=== PATIENT | female | born 1990 | race Caucasian/White ===

== ENCOUNTER 2018-02-09 11:21 | Emergency (ER) | payer OTHER ==
[~2018-02-09] VITALS: Ht 160 cm; Wt 112.5 kg
[2018-02-09 11:28] VITALS: Ht 160 cm; Wt 112.5 kg
[2018-02-09 12:04] LABS: BASOPHIL % 0.3 % (0-2); PLATELET COUNT 210 x10^3mcL (130-400); RED CELL DISTRIBUTION WIDTH 13.2 % (11.5-14.5)
[2018-02-09 12:05] LABS: CALCIUM 8.3 mg/dL (8.5-10.1); CARBON DIOXIDE 25.2 mmol/L (21-32); CHLORIDE SERUM 103 mmol/L (98-107); CREATININE SERUM 0.7 mg/dL (0.6-1.0); GFR1 > 60 mL/min; GLUCOSE SERUM 109 mg/dL (74-106); POTASSIUM SERUM 3.7 mmol/L (3.5-5.1); SODIUM SERUM 138 mmol/L (136-145)
[2018-02-09 12:39] LABS: ALBUMIN 3.7 g/dL (3.4-5.0); ALKALINE PHOSPHATASE 118 U/L (46-116); AST/SGOT 16 U/L (15-37); BILIRUBIN TOTAL 0.5 mg/dL (0.20-1.00); LIPASE 75 IU/L (73-393); TOTAL PROTEIN, SERUM 7.7 g/dL (6.4-8.2)
[2018-02-09 12:51] LABS: ALT/SGPT 30 U/L (14-59)
[2018-02-09 14:45] VITALS: BP 114/66
== END 2018-02-09 14:45 | disposition home or self-care (01) ==
LOC: ED 11:21
PROVIDERS: Emergency Medicine
DX: R10.13 Epigastric pain (principal); R11.2 Nausea with vomiting, unspecified; R19.7 Diarrhea, unspecified
CPT/HCPCS: J2405; J2550; J3010; J7030

== ENCOUNTER 2020-08-02 12:38 | Emergency (ER) | payer BC, OTHER ==
[~2020-08-02] VITALS: Ht 154.9 cm; Wt 125.6 kg
[2020-08-02 13:42] VITALS: BP 162/84; Ht 154.9 cm; Wt 125.6 kg
== END 2020-08-02 15:00 | disposition home or self-care (01) ==
LOC: ED 12:38
DX: S93.602A Unspecified sprain of left foot, initial encounter (principal); Z98.890 Other specified postprocedural states; X58.XXXA Exposure to other specified factors, initial encounter; Y93.89 Activity, other specified; Y92.89 Other specified places as the place of occurrence of the external cause; Y99.8 Other external cause status